=== PATIENT | female | born 1995 | race Caucasian/White ===

== ENCOUNTER 2021-06-24 15:58 | Emergency (ER) | payer OTHER ==
[~2021-06-24] VITALS: Ht 177.8 cm; Wt 59.0 kg
[2021-06-24] MEDS ORDERED: PRED20 PO (17:24)
[2021-06-24] MEDS ORDERED: Benadryl Itch28.3 G1 TOP (17:24)
== END 2021-06-24 17:50 | disposition home or self-care (01) ==
LOC: ER 15:58
DX: L25.9 Unspecified contact dermatitis, unspecified cause (principal); Z91.048 Other nonmedicinal substance allergy status
CPT/HCPCS: 99282; A9270